=== PATIENT | female | born 1985 | race Two or more races ===

== ENCOUNTER 2020-10-13 12:34 | Emergency (ER) | payer OTHER ==
[~2020-10-13] VITALS: Ht 152.4 cm; Wt 68.0 kg
[2020-10-13] MEDS ORDERED: NORFLEX100MG PO (16:03)
[2020-10-13] MEDS ORDERED: KETO10TA2 PO (16:03)
== END 2020-10-13 16:09 | disposition home or self-care (01) ==
LOC: ER 12:34
DX: S50.11XA Contusion of right forearm, initial encounter (principal); S00.83XA Contusion of other part of head, initial encounter; M54.2 Cervicalgia; M54.5 Low back pain; W18.09XA Striking against other object with subsequent fall, initial encounter; Y93.89 Activity, other specified; Y92.488 Other paved roadways as the place of occurrence of the external cause; Y99.8 Other external cause status